=== PATIENT | female | born 1985 | race African-American/Black ===

== ENCOUNTER 2017-02-17 11:51 | Outpatient (CLI) | payer OTHER, MEDICAID | END 2017-02-17 11:52 | disposition critical access hospital (66) | LOC: EMS 11:51 | PROVIDERS: ATTEND Surgery | DX: R07.9 Chest pain, unspecified (principal) | CPT/HCPCS: A0425; A0429 ==

== ENCOUNTER 2017-02-17 12:11 | Emergency (ER) | payer OTHER, MEDICAID ==
[2017-02-17] MEDS ORDERED: KETOROLAC 60 MG/2 ML VIAL IVP STA (12:31)
--- NOTE | 2017-02-17 12:34 | ED Physician Documentation ---
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 denies: Now EGA Musculoskeletal: denies: Extremity pain, Extremity swelling Neurologic: denies: Generalized weakness Endocrine: denies: Easy bruising / bleeding Immunocompromised: denies: Immunocompromised PD PAST MEDICAL HISTORY - Past Surgical History Past Surgical History: No - Present Medications Home Medications: Ambulatory Orders Medication Instructions Recorded Confirmed No Known Home Medications [No 11/08/15 02/17/17 Known Home Medications] - Allergies Allergies/Adverse Reactions: Allergies Allergy/AdvReac Type Severity Reaction Status Date / Time codeine Allergy Nausea Verified 02/17/17 12:35 latex Allergy Rash Verified 02/17/17 12:35 - Social History Does the pt smoke?: No Smoking Status: Never smoker Does the pt drink ETOH?: No Does the pt have substance abuse?: No - Immunizations Immunizations are current?: Yes PD ED PE NORMAL - Vitals Vital signs reviewed: Yes - General General: Alert and oriented X 3, Other (holding her fist to her left ant chest) - Neck Neck: Supple, no meningeal sign - Cardiac Cardiac: RRR - Respiratory Respiratory: No respiratory distress, Clear bilaterally - Abdomen Abdomen: Soft, Non tender - Extremities Extremities: No edema, No calf tenderness / cord - Neuro Neuro: Alert and oriented X 3, No motor deficit Results - Vitals Vitals: Vital Signs - 24 hr 02/17/17 02/17/17 02/17/17 12:33 13:10 13:35 Temperature Heart Rate 62 66 61 Respiratory 13 18 16 Rate Blood Pressure 127/77 125/81 H 118/68 O2 Saturation 100 97 100 02/17/17 02/17/17 02/17/17 15:21 16:07 16:09 Temperature 37.0 C 36.2 C L Heart Rate 84 87 Respiratory 16 20 Rate Blood Pressure 123/90 H 126/88 H O2 Saturation 100 99 Oxygen O2 Source Room air - EKG (time done) 1235 Rate: Rate (enter#) Rhythm: NSR [place]: Normal Intervals: Normal GA Ischemia: Normal ST segments, Non specific changes - Labs Labs: Laboratory Tests 02/17/17 02/17/17 02/17/17 12:47 12:47 12:47 WBC 4.6 L RBC 4.59 Hgb 12.7 Hct 38.1 MCV 83.0 MCH 27.6 MCHC 33.3 RDW 14.5 Plt Count 171 MPV 8.6 Neut # 3.0 Lymph # 1.3 L [place] # 0.2 Eos # 0.0 Baso # 0.0 Absolute Nucleated RBC 0.00 Nucleated RBC % 0.1 Sodium 137 Potassium 4.1 Chloride 104 Carbon Dioxide 27 Anion Gap 6.0 BUN 15 Creatinine 0.7 Estimated GFR (MDRD) 117 Glucose 98 Calcium 8.8 Total Bilirubin 0.5 AST 14 ALT 13 Alkaline Phosphatase 57 Troponin I < 0.04 Total Protein 7.5 Albumin 3.7 Globulin 3.8 Albumin/Globulin Ratio 1.0 Lipase 20 L Serum HCG, Qual 02/17/17 02/17/17 12:47 15:00 WBC RBC Hgb Hct MCV MCH MCHC RDW Plt Count MPV Neut # Lymph # [place] # Eos # Baso # Absolute Nucleated RBC Nucleated RBC % Sodium Potassium Chloride Carbon Dioxide Anion Gap BUN Creatinine Estimated GFR (MDRD) Glucose Calcium Total Bilirubin AST ALT Alkaline Phosphatase Troponin I < 0.04 Total Protein Albumin Globulin Albumin/Globulin Ratio Lipase Serum HCG, Qual NEGATIVE - Rads (name of study) CXR Radiology: See rad report (nacpd) PD MEDICAL DECISION MAKING - ED course ED course: PERC negative CXR neg EKG non specific CE X 2 neg pt better with toradol pain was somewhat worse with moving so may be chest wall pain though no antecedent injury or activity to explain same given reassuring work up feel safe to dc Departure - Departure Disposition: 01 Home, Self Care Clinical Impression: Chest pain Qualifiers: Chest pain type: unspecified Qualified Code(s): R07.9 - Chest pain, unspecified Condition: Good Instructions: ED Chest Pain Atypical Unkn Cause Comments: Your work up was reassuring The EKG and two sets of blood tests do not indicate a heart attack The chest xray does no suggest an aortic aneurysm or tear Your history and exam do not suggest a blood clot in your lungs The pain is worse with moving so it may be coming from the muscles and bones of your chest well Given the reassuring work up I think it is safe for your to go home Please follow up with your PMD for a recheck Given your family history of heart disease, I would suggest a stress test. Return if worse Forms: Activity restrictions
[2017-02-17] MEDS ORDERED: KETOROLAC 30 MG/ML VIAL ONE (12:45)
[2017-02-17 12:56] LABS: BASOPHILS % (AUTO) 0.3 %; EOSINOPHILS % (AUTO) 1.1 %; HCT - HEMATOCRIT 38.1 % (37.0-47.0); HGB - HEMOGLOBIN 12.7 g/dL (12.0-16.0); LYMPHOCYTES # (AUTO) 1.3 10^3/uL (1.5-3.5); LYMPHOCYTES % (AUTO) 29.1 %; MEAN CORPUSCULAR HEMOGLOBIN 27.6 pg (27.0-31.0); MEAN CORPUSCULAR HGB CONC 33.3 g/dL (32.0-36.0); MEAN PLATELET VOLUME 8.6 fL (7.9-10.8); MONOCYTES # (AUTO) 0.2 10^3/uL (0.0-1.0); MONOCYTES % (AUTO) 4.7 %; NEUTROPHILS % (AUTO) 64.8 %; NUCLEATED RED BLOOD CELLS AUTO 0.1 /100WBC; RED BLOOD COUNT 4.59 10^6/uL (4.20-5.40); RED CELL DISTRIBUTION WIDTH 14.5 % (12.0-15.0); UNCORRECTED WHITE BLOOD COUNT 4.6 x10^3/uL; WHITE BLOOD COUNT 4.6 x10^3/uL (4.8-10.8)
[2017-02-17 13:11] LABS: BILIRUBIN,TOTAL 0.5 mg/dL (0.2-1.0); CALCIUM 8.8 mg/dL (8.5-10.3); CREATININE 0.7 mg/dL (0.4-1.0); POTASSIUM 4.1 mmol/L (3.5-5.0); TOTAL PROTEIN 7.5 g/dL (6.7-8.2)
--- NOTE | 2017-02-17 13:44 | XRAY Preliminary Report ---
Exam: XR CHEST 2 VIEW PA/LAT IMPRESSION: Normal 2-view chest radiography. [facility] SITE ID: [id number]
--- NOTE | 2017-02-17 13:56 | XRAY Report ---
EXAM: CHEST RADIOGRAPHY EXAM DATE: 02/17/2017 01:39 PM. CLINICAL HISTORY: Chest pain for one day. COMPARISON: None. TECHNIQUE: 2 views. FINDINGS: Lungs/Pleura: No focal opacities evident. No pleural effusion. No pneumothorax. Normal volumes. Mediastinum: Heart and mediastinal contours are unremarkable. Other: None. IMPRESSION: Normal 2-view chest radiography. [facility] Referring Provider Line: [phone] SITE ID: [id number]
[2017-02-17 16:08] VITALS: BP 126/88
== END 2017-02-17 16:20 | disposition home or self-care (01) ==
LOC: ED 12:11
DX: R07.9 Chest pain, unspecified (principal)
CPT/HCPCS: 36415; 71020; 80053; 83690; 84484; 84703; 85025; 93005; 96374; 99284

== ENCOUNTER 2020-08-30 17:16 | Outpatient (CLI) | payer OTHER, MEDICAID ==
--- NOTE | 2020-08-31 09:37 | XRAY Report ---
PROCEDURE: Elbow 2 View RT INDICATIONS: WRIST JOINT PAIN, RIGHT TECHNIQUE: 2 views of the elbow were acquired. COMPARISON: None FINDINGS: Bones: No fractures or dislocations. No suspicious bony lesions. Soft tissues: No elbow joint effusion. No suspicious soft tissue calcifications. IMPRESSION: No elbow fracture or dislocation. Reviewed by: Mg Lobo MD on 08/31/2020 9:36 AM PDT Approved by: Mg Lobo MD on 08/31/2020 9:36 AM PDT Station ID: [id number]
--- NOTE | 2020-08-31 09:38 | XRAY Report ---
PROCEDURE: Wrist 4 View RT INDICATIONS: WRIST JOINT PAIN, RIGHT TECHNIQUE: 3 views of the wrist were acquired. COMPARISON: None FINDINGS: Bones: No fractures or dislocations. No suspicious bony lesions. Soft tissues: No suspicious soft tissue calcifications. IMPRESSION: Unremarkable radiographic examination of right wrist. Reviewed by: Mg Lobo MD on 08/31/2020 9:37 AM PDT Approved by: Mg Lobo MD on 08/31/2020 9:37 AM PDT Station ID: [id number]
== END 2020-08-30 23:59 | disposition home or self-care (01) ==
LOC: DI.N 17:16
PROVIDERS: ATTEND Family Medicine
DX: M25.531 Pain in right wrist (principal)